=== PATIENT | female | born 1965 | race African-American/Black ===

== ENCOUNTER 2017-11-07 18:03 | Inpatient (IN) | payer MEDICARE, MEDICAID ==
[~2017-11-07] VITALS: Ht 175.3 cm; Wt 64.4 kg
[2017-11-07 19:06] LABS: BASOPHILS % (AUTO) 1.4 % (0.0-2.0); EOSINOPHILS % (AUTO) 0.4 % (1.0-6.0); HEMATOCRIT 39.7 % (36-46); HEMOGLOBIN 13.3 g/dL (12.0-16.0); LYMPHOCYTES % (AUTO) 46.4 % (22.0-44.0); MEAN CORPUSCULAR HEMOGLOBIN 31.9 pg (26.0-34.0); MEAN CORPUSCULAR HGB CONC 33.5 G/dL (31.0-37.0); MEAN CORPUSCULAR VOLUME 95 fL (80-100); MONOCYTES # (AUTO) 0.3 K/uL (0.1-1.0); MONOCYTES % (AUTO) 6.5 % (2.0-9.0); NEUTROPHILS # (AUTO) 1.9 K/uL (1.8-7.7); NEUTROPHILS % (AUTO) 45.3 % (40.0-70.0); PLATELET COUNT (AUTO) 250 K/uL (150-450); RED BLOOD CELL COUNT(AUTO) 4.18 MIL/uL (4.00-5.20); RED CELL DISTRIBUTION WIDTH 13.7 % (11.5-14.5)
[2017-11-07 19:15] LABS: CALCIUM, TOTAL 8.9 mg/dL (8.8-10.5); CREATININE 1.68 mg/dL (0.60-1.30); POTASSIUM 3.7 mmol/L (3.5-5.1)
[2017-11-07 19:19] LABS: AMPHET/METH SCREEN,URINE NEGATIVE (NEGATIVE); BARBITURATE SCREEN, URINE NEGATIVE (NEGATIVE); BENZODIAZEPINES SCREEN,URINE NEGATIVE (NEGATIVE); CANNABINOID SCREEN,URINE POSITIVE (NEGATIVE); COCAINE SCREEN,URINE POSITIVE (NEGATIVE); METHADONE SCREEN, URINE NEGATIVE (NEGATIVE); OPIATE SCREEN,URINE NEGATIVE (NEGATIVE)
[2017-11-07 19:19] LABS: ALBUMIN 3.3 g/dL (3.4-5.0); BILIRUBIN,TOTAL 0.4 mg/dL (0.1-1.0); TOTAL PROTEIN, SERUM 7.1 g/dL (6.4-8.2)
[2017-11-07 19:22] LABS: PHENCYCLIDINE SCREEN,URINE NEGATIVE (NEGATIVE)
[2017-11-07] MEDS ORDERED: ZOLPIDEM TARTRATE 10 MG TABLET PO PRN (20:00)
[2017-11-07] MEDS ORDERED: OLANZapine 5 MG TABLET PO ONE (20:00)
[2017-11-07] MEDS ORDERED: LORazepam 2 MG TABLET PO PRN (20:00)
[2017-11-07] MEDS ORDERED: HALOPERIDOL 5 MG TABLET PO PRN (20:00)
[2017-11-07 20:54] LABS: HEMOGLOBIN A1C 5.6 % (4.5-6.2)
[2017-11-07 21:55] LABS: CHOL/HDL RATIO 1.7 (3.9-5.7); FREE T4 (FREE THYROXINE) 0.9 ng/dL (0.76-1.46); THYROID STIMULATING HORMONE 0.64 uIU/mL (0.36-3.74)
[2017-11-07 23:45] VITALS: BP 148/95
[2017-11-07] MEDS ORDERED: PNEUMOCOCCAL VACCINE POLYVALENT 0.5 ML VIAL [PPSV23] IM ONE (23:45)
[2017-11-08] VITALS (13 sets, daily range): BP systolic 115–140; BP diastolic 58–90
[2017-11-08] MEDS ORDERED: ONDANSETRON HCL 4 MG TABLET PO PRN (13:00)
[2017-11-08] MEDS ORDERED: CloNIDine HCL 0.1 MG TABLET PO PRN (13:00)
[2017-11-08] MEDS ORDERED: PETROLATUM,WHITE 71 GM JELLY TP PRN (13:00)
[2017-11-08] MEDS ORDERED: BACITRACIN 28.4 GM OINTMENT TP PRN (13:00)
[2017-11-08] MEDS ORDERED: LOPERAMIDE HCL 2 MG CAPSULE PO PRN (13:00)
[2017-11-08] MEDS ORDERED: ACETAMINOPHEN 325 MG TABLET PO PRN (13:00)
[2017-11-08] MEDS ORDERED: IBUPROFEN 600 MG TABLET PO PRN (13:00)
[2017-11-08] MEDS ORDERED: ALBUTEROL SULFATE HFA 90 MCG/PUFF 8 GM INHALER IH PRN (13:00)
[2017-11-08] MEDS ORDERED: MAGNESIUM HYDROXIDE SUSPENSION 30 ML UDCUP PO PRN (13:00)
[2017-11-08] MEDS ORDERED: BENZOCAINE/MENTHOL LOZENGE MM PRN (13:00)
[2017-11-08] MEDS ORDERED: MAG HYDROX/AL HYDROX/SIMETH ES 30 ML SUSPENSION UDCUP PO PRN (13:00)
[2017-11-08] MEDS ORDERED: CYANOCOBALAMIN 1,000 MCG/ML VIAL IM ONE (15:15)
[2017-11-08] MEDS ORDERED: LORazepam 2 MG TABLET PO PRN (15:15)
[2017-11-08] MEDS: FOLIC ACID 1 MG TABLET PO SCH (15:40)
[2017-11-08] MEDS: MULTIVITAMINS WITH MINERALS, THERAPEUTIC TABLET PO SCH (15:40)
[2017-11-08] MEDS: FLUoxetine HCL 20 MG CAPSULE PO SCH (15:40)
[2017-11-08] MEDS: THIAMINE HCL 100 MG TABLET PO SCH (16:47)
[2017-11-08] MEDS: OLANZapine 10 MG TABLET PO SCH (20:23)
[2017-11-09 02:15] VITALS: BP 118/71
[2017-11-09 06:15] VITALS: BP 124/73
[2017-11-09] MEDS ORDERED: LORazepam 2 MG TABLET PO PRN (07:00)
[2017-11-09 08:17] VITALS: BP 123/68
[2017-11-09] MEDS: OMEPRAZOLE 20 MG CAPSULE PO SCH (08:59)
[2017-11-09] MEDS: FOLIC ACID 1 MG TABLET PO SCH (08:59)
[2017-11-09] MEDS: DOCUSATE SODIUM 100 MG CAPSULE PO SCH (08:59)
[2017-11-09] MEDS: THIAMINE HCL 100 MG TABLET PO SCH ×2 (08:59→16:33)
[2017-11-09] MEDS: MULTIVITAMINS WITH MINERALS, THERAPEUTIC TABLET PO SCH (08:59)
[2017-11-09] MEDS: LORazepam 2 MG TABLET PO SCH ×4 (08:59→20:36)
[2017-11-09] MEDS: FLUoxetine HCL 20 MG CAPSULE PO SCH (08:59)
[2017-11-09 13:11] VITALS: BP_SYST 110; BP_SYST 125; BP_DIAS 63; BP_DIAS 72
[2017-11-09 18:26] VITALS: BP 140/74
[2017-11-09 18:27] VITALS: BP 140/74
[2017-11-09] MEDS: OLANZapine 10 MG TABLET PO SCH (20:38)
[2017-11-10 06:20] VITALS: BP 124/86
[2017-11-10 06:33] VITALS: BP 124/86
[2017-11-10 08:01] VITALS: BP 129/76
[2017-11-10 09:00] VITALS: BP 129/76
[2017-11-10] MEDS: LORazepam 2 MG TABLET PO SCH ×4 (09:26→20:32)
[2017-11-10] MEDS: MULTIVITAMINS WITH MINERALS, THERAPEUTIC TABLET PO SCH (09:26)
[2017-11-10] MEDS: DOCUSATE SODIUM 100 MG CAPSULE PO SCH (09:26)
[2017-11-10] MEDS: FOLIC ACID 1 MG TABLET PO SCH (09:26)
[2017-11-10] MEDS: FLUoxetine HCL 20 MG CAPSULE PO SCH (09:26)
[2017-11-10] MEDS: OMEPRAZOLE 20 MG CAPSULE PO SCH (09:26)
[2017-11-10] MEDS: THIAMINE HCL 100 MG TABLET PO SCH ×2 (09:26→16:32)
[2017-11-10 16:05] VITALS: BP 132/79
[2017-11-10 17:55] VITALS: BP 132/79
[2017-11-10] MEDS: OLANZapine 10 MG TABLET PO SCH (20:33)
[2017-11-11 06:37] VITALS: BP 130/86
[2017-11-11] MEDS ORDERED: LORazepam 1 MG TABLET PO PRN (07:00)
[2017-11-11] MEDS: FLUoxetine HCL 20 MG CAPSULE PO SCH (08:12)
[2017-11-11] MEDS: LORazepam 1 MG TABLET PO SCH ×4 (08:12→20:25)
[2017-11-11] MEDS: OMEPRAZOLE 20 MG CAPSULE PO SCH (08:12)
[2017-11-11] MEDS: DOCUSATE SODIUM 100 MG CAPSULE PO SCH (08:12)
[2017-11-11] MEDS: THIAMINE HCL 100 MG TABLET PO SCH ×2 (08:12→16:13)
[2017-11-11] MEDS: FOLIC ACID 1 MG TABLET PO SCH (08:12)
[2017-11-11] MEDS: MULTIVITAMINS WITH MINERALS, THERAPEUTIC TABLET PO SCH (08:13)
[2017-11-11 08:21] VITALS: BP 132/64
[2017-11-11 08:22] VITALS: BP 132/64
[2017-11-11 16:30] VITALS: BP 142/90
[2017-11-11 17:30] VITALS: BP 136/86
[2017-11-11] MEDS: OLANZapine 10 MG TABLET PO SCH (20:26)
[2017-11-12 05:57] VITALS: BP 131/86
[2017-11-12 08:50] VITALS: BP 122/77
[2017-11-12] MEDS: OMEPRAZOLE 20 MG CAPSULE PO SCH (08:58)
[2017-11-12] MEDS: DOCUSATE SODIUM 100 MG CAPSULE PO SCH (08:58)
[2017-11-12] MEDS: FOLIC ACID 1 MG TABLET PO SCH (08:58)
[2017-11-12] MEDS: FLUoxetine HCL 20 MG CAPSULE PO SCH (08:58)
[2017-11-12] MEDS: MULTIVITAMINS WITH MINERALS, THERAPEUTIC TABLET PO SCH (08:58)
[2017-11-12] MEDS: THIAMINE HCL 100 MG TABLET PO SCH ×2 (08:58→16:05)
[2017-11-12 09:04] VITALS: BP 121/77
[2017-11-12 16:04] VITALS: BP 115/90
[2017-11-12] MEDS: LORazepam 1 MG TABLET PO PRN ×2 (16:05→20:24)
[2017-11-12 16:50] VITALS: BP 115/90
[2017-11-12] MEDS ORDERED: FLUO-191 PO (20:58)
[2017-11-12] MEDS ORDERED: OLAN7.5T2 PO (20:58)
[2017-11-12] MEDS ORDERED: OMEP20 PO (20:59)
[2017-11-12] MEDS ORDERED: DSS100 PO (20:59)
[2017-11-12] MEDS ORDERED: OLANZapine 7.5 MG TABLET PO SCH (21:00)
[2017-11-12] MEDS ORDERED: MULT-1239 PO (21:00)
[2017-11-13 04:07] VITALS: BP 120/80
[2017-11-13 08:05] VITALS: BP 129/98
[2017-11-13] MEDS: FOLIC ACID 1 MG TABLET PO SCH (08:10)
[2017-11-13] MEDS: OMEPRAZOLE 20 MG CAPSULE PO SCH (08:10)
[2017-11-13] MEDS: DOCUSATE SODIUM 100 MG CAPSULE PO SCH (08:10)
[2017-11-13] MEDS: THIAMINE HCL 100 MG TABLET PO SCH (08:10)
[2017-11-13] MEDS: FLUoxetine HCL 20 MG CAPSULE PO SCH (08:10)
[2017-11-13] MEDS: MULTIVITAMINS WITH MINERALS, THERAPEUTIC TABLET PO SCH (08:10)
== END 2017-11-13 09:41 | disposition home or self-care (01) | DRG 885 ==
LOC: EMS 18:04 → B2X 20:24 → EEVIPCON 20:24 → B2X 11-08 01:16
PROC: 3E0234Z Introduction of Serum, Toxoid and Vaccine into Muscle, Percutaneous Approach (ICD-10-PCS; principal; 2017-11-08)
DX: F25.1 Schizoaffective disorder, depressive type (principal); R45.851 Suicidal ideations; F41.9 Anxiety disorder, unspecified; F17.210 Nicotine dependence, cigarettes, uncomplicated; F19.10 Other psychoactive substance abuse, uncomplicated; F10.129 Alcohol abuse with intoxication, unspecified; Z23 Encounter for immunization; I10 Essential (primary) hypertension; E78.00 Pure hypercholesterolemia, unspecified; Z56.0 Unemployment, unspecified; D72.819 Decreased white blood cell count, unspecified; F12.90 Cannabis use, unspecified, uncomplicated; Z71.41 Alcohol abuse counseling and surveillance of alcoholic; Z71.51 Drug abuse counseling and surveillance of drug abuser; Z71.6 Tobacco abuse counseling; Z65.3 Problems related to other legal circumstances; Z79.899 Other long term (current) drug therapy; Y90.6 Blood alcohol level of 120-199 mg/100 ml
CPT/HCPCS: 83036; 84439; 84443; 90686; 90732; 99285; G0480; J3420